=== PATIENT | female | born 1955 | race Caucasian/White ===

== ENCOUNTER 2017-03-14 19:57 | Emergency (ER) | payer MEDICARE ==
[~2017-03-14] VITALS: Ht 165.1 cm; Wt 60.0 kg
[~2017-03-14 19:57] MED LIST: ARTANE2 MG PO; DEPAKOTE500 MG PO; KLONOPIN0.5 MG PO; LEVOTHYROXIN125 MCG PO; OLANZAPINE5 MG PO
[2017-03-14] MEDS ORDERED: EFFEXOR XR75 MG PO ×2 (20:40→20:41)
[2017-03-14 20:41] LABS: HEMATOCRIT 37.8 % (37.0-47.0); HEMOGLOBIN 12.1 g/dl (12.0-16.0); IMMATURE GRANULOCYTES 0.6 % (0.0-1.0); MEAN CELL VOLUME 92.6 fL CALC (80.0-100.0); MEAN CORPUSCULAR HGB 29.7 pG CALC (26.0-32.0); NEUT# 3.27 thou/uL (2.00-7.15); RED BLOOD COUNT 4.08 mill/uL (4.20-5.60); RED CELL DISTRI WIDTH 13.9 % (11.5-15.5)
[2017-03-14] MEDS ORDERED: KRISTALOSE20 GM PO (20:42)
[2017-03-14] MEDS ORDERED: LEVOTHYROXIN150 MCG PO (20:43)
[2017-03-14] MEDS ORDERED: MULTIVITAMI1 PO (20:44)
[2017-03-14] MEDS ORDERED: SEROQUEL400 MG PO (20:45)
[2017-03-14] MEDS ORDERED: REMERON15 MG PO (20:46)
[2017-03-14] MEDS ORDERED: SEROQUEL100 MG PO (20:46)
[2017-03-14 20:51] LABS: ALBUMIN 3.8 g/dL (3.2-5.0); ALKALINE PHOSPHATASE 68 u/l (38-126); ANION GAP 13 (6-22 (CALC)); BILIRUBIN, TOTAL 0.2 mg/dL (0.0-1.4); BUN 19 mg/dL (8-23); BUN/CREATININE RATIO 41 (12-20 (CALC)); CALCIUM 9.5 mg/dL (8.4-10.2); CARBON DIOXIDE 28 mmol/l (22-30); CHLORIDE 103 mmol/l (95-108); CREATININE 0.5 mg/dL (0.5-1.0); GFR > 60 ML/MIN (>=60 (CALC)); GFR FOR AFR.AMER. > 60 ML/MIN (>=60 (CALC)); GLUCOSE 118 mg/dL (82-115); SGOT/AST 14 u/l (9-36); SGPT/ALT 27 u/l (11-66); SODIUM 140 mmol/l (137-146); TOTAL PROTEIN 6.9 g/dL (6.3-8.2)
[2017-03-14 20:57] LABS: ETHYL ALCOHOL < 10 mg/dl (0-30)
[2017-03-14 21:25] LABS: URINE BILIRUBIN - DIPSTICK NEGATIVE (NEGATIVE); URINE BLOOD DIPSTICK NEGATIVE (NEGATIVE); URINE CLARITY TURBID; URINE COLOR YELLOW; URINE GLUCOSE - DIPSTICK NEGATIVE (NEGATIVE); URINE KETONE NEGATIVE (NEGATIVE); URINE LEUK ESTERASE TRACE (NEGATIVE); URINE NITRITE - DIPSTICK NEGATIVE (Negative); URINE PROTEIN - DIPSTICK NEGATIVE (NEG-TRACE); URINE UROBILINOGEN - DIPSTICK 0.2 E.U./dL (0.2)
[2017-03-14 21:30] LABS: BARBITURATES NEGATIVE (NEGATIVE); COCAINE NEGATIVE (NEGATIVE); METHADONE NEGATIVE (NEGATIVE); OXCYCODONE NEGATIVE (NEGATIVE); TETRAHYDROCANNABIONOL NEGATIVE (NEGATIVE); TRICYLIC ANTIDEPRESSANTS POSITIVE (NEGATIVE)
[2017-03-15 04:05] VITALS: BP 132/73
== END 2017-03-15 03:50 ==
LOC: ED 19:57
PROVIDERS: Emergency Medicine
DX: F31.9 Bipolar disorder, unspecified (principal); R41.82 Altered mental status, unspecified; R00.0 Tachycardia, unspecified